=== PATIENT | female | born 2000 | race Caucasian/White ===

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

== ENCOUNTER 2021-05-05 20:58 | Emergency (ER) | payer BC ==
[~2021-05-05] VITALS: Ht 162.6 cm; Wt 51.4 kg
[~2021-05-05 20:58] MED LIST: NEXIUM 40MG40 MG PO; VALIUM 5MG T5 MG/TAB PO
[2021-05-05 22:14] LABS: BASO % 0.3 % (0.0-2.0); EOS # 0.1 (0.0-0.7); EOS % 0.8 % (0-4.0); GRAN # 3.9 (1.4-6.5); GRAN % 51.3 % (42.2-75.2); HEMATOCRIT 35.5 % (35.0-45.0); HEMOGLOBIN 12.1 g/dl (12.0-15.0); LYMPH # 3.1 (1.2-3.4); LYMPH % 41.4 % (20.0-51.0); MEAN CELL VOLUME 88 fl (80.0-95.0); MEAN CORPUSCULAR HEMOGLOBIN 30 pg (26.0-32.0); MEAN CORPUSCULAR HGB CONC 34 g/dl (33.0-37.0); MEAN PLATELET VOLUME 10.3 fl (7.4-10.4); MONO # 0.5 (0.1-0.6); MONO % 5.9 % (1.7-9.3); PLATELET COUNT 246 K/mm3 (130-400); RED BLOOD COUNT 4.05 M/mm3 (4.10-5.30)
[2021-05-05 22:26] LABS: COLLECTION METHOD CLEAN CATCH
[2021-05-05 22:34] LABS: MUCOUS Present /lpf; PH 5 (5-8); URINE APPEARANCE Cloudy; URINE BACTERIA None Seen /hpf; URINE BILIRUBIN Negative (NEGATIVE); URINE BLOOD Negative (NEGATIVE); URINE COLOR Yellow; URINE GLUCOSE Negative (NEGATIVE); URINE KETONE Trace (NEGATIVE); URINE LEUKOCYTE ESTERASE 2+ (NEGATIVE); URINE NITRATE Negative (NEGATIVE); URINE PROTEIN(semi-quant) 1+ (NEGATIVE); URINE RBC 0-2 /hpf; URINE UROBILINOGEN >=4.0 mg/dL (NEGATIVE)
[2021-05-05 22:38] LABS: ALANINE AMINOTRANSFERASE 7 U/L (0-55); ALBUMIN 3.8 gm/dL (3.5-5.0); ALKALINE PHOSPHATASE 53 U/L (0-750); ANION GAP 8 mmol/L; AST,SGOT 13 U/L (5-34); BLOOD UREA NITROGEN 13 mg/dL (7-19); CALCIUM 9.4 mg/dL (8.4-10.2); CARBON DIOXIDE 26 mEq/L (22-29); CHLORIDE 106 mmol/L (98-107); CREATININE, serum 0.83 mg/dL (0.57-1.11); GLUCOSE 105 mg/dL (70-99); LIPASE < 10 U/L (8-78); POTASSIUM 3.3 mmol/L (3.5-4.5); SODIUM 140 mmol/L (136-145)
[2021-05-06] MEDS ORDERED: NORCO 325 MG-51 TAB PO (01:27)
[2021-05-06 01:36] VITALS: BP 95/65; PULSE 66; TEMP 98
== END 2021-05-06 01:43 | disposition home or self-care (01) ==
LOC: COL.ER 20:58
PROVIDERS: Physician Assistant
DX: N83.201 Unspecified ovarian cyst, right side (principal)
CPT/HCPCS: J1885; J2270; J2405; J7030; Q9967